=== PATIENT | female | born 1995 | race Caucasian/White ===

== ENCOUNTER 2018-10-08 12:40 | Inpatient (IN) ==
[2018-10-08 15:03] LABS: Candida DNA DETECTED (Not Detect); Gardnerella DNA Not Detected (Not Detect); Trichomonas DNA Not Detected (Not Detect)
[2018-10-08] MEDS ORDERED: Naloxone 0.4 MG/ML INJ IVP PRN (15:05)
[2018-10-08] MEDS ORDERED: *HR* Nalbuphine 10 MG/ML AMPUL IVP PRN (15:05)
[2018-10-08] MEDS ORDERED: Ondansetron 4 MG/2 ML VIAL IVP PRN (15:05)
[2018-10-08] MEDS ORDERED: Famotidine 20 MG/2 ML VIAL IVP PRN (15:05)
[2018-10-08] MEDS ORDERED: Metoclopramide 10 MG/2 ML VIAL IVP PRN (15:05)
[2018-10-08] MEDS ORDERED: Ringers Solution, Lactated 1,000 ML IVC SCH (15:15)
--- NOTE | 2018-10-08 15:41 | OB/GYN History & Physical ---
Date of Encounter: 10/08/18 Time of Encounter: 15:09 Assessment and Plan (1) 39 weeks gestation of Current visit: Yes Status: Acute Admit for spontaneous ROM at 0700 this morning (2) Spontaneous rupture of membranes Current visit: Yes Status: Acute SROM at 0700 this morning, clear fluid. Augment with PO Cytotec or Pitocin (3) NST (non-stress test) reactive Current visit: Yes Status: Acute FHR 130 bpm, moderate variability, +15x15 accels, no decels (4) Blood type O+ Current visit: Yes Status: Acute Collect cord blood at delivery History of Present Illness Chief complaint: SROM at 39w4d HPI: Ms. Valles is a 23 year old female at 39w4d who presents today with SROM at 0700 this morning. She had a gush and has continued to leak since that time. She does report positive movement, denies bleeding and painful contractions. Blood type O+ GBS negative T. Pall negative HbSAG negative Rubella Immune Varicella Negative HIV negative Past Med Surg Social Fam HX - Past Medical History Source: patient Medical history: other Additional medical history: TBI Psychiatric history: anxiety - Past Surgical History Surgical History: other Additional surgical history: craniotomy 02/2013, wisdom teeth extraction - Social History Smoking Status: Never smoker Smokeless Tobacco Status: No Alcohol use: none Drug use: none Occupational status: employed Current living situation: Home - Independent, With Family Activity Level: Independent ambulation Recent Out of Country Travel Within the Last 8 Weeks: No Exposure or Possible Exposure to Illness During Travel: No - Family History Mother Living Status: Still Living Hx Family Cardiac Disorders: Yes (HTN) Hx Family Respiratory Disorders: No Hx Family Cancer: No Hx Family GI Disorders: No Hx Family Genitourinary Disorders: No Hx Family Endocrine Disorder: No Hx Family Musculoskeletal Disorders: No Hx Family Neuromuscular Disorders: No Hx Family Neurologic Disorders: No Hx Family HEENT Disorders: No Hx Family Autoimmune Disorders: No Hx Family Reproductive Disorders: Yes (endometriosis) Hx Family Psychosocial Disorders: No Hx Family Medical Disorders: No Obstetrical History - Pregnancies : 1 Para: 0 Term: 0 : 0 Ab's: 0 Livin Medications and Allergies [place]-3/Dha/Epa/Fish Oil [Fish Oil 1,000 mg Softgel] 1 each PO DAILY 10/08/18 [History] [id number]/FA/Omega3/Dha/Fish Oil [ Gummies] 1 each PO DAILY 10/08/18 [History] Allergy/AdvReac Type Severity Reaction Status Date / Time fluticasone [From Flonase] AdvReac Nose Bleed Verified 10/08/18 13:01 Review of System OB All systems PM: reviewed and no additional remarkable complaints except as stated Exam - Constitutional Constitutional: well developed, well nourished, no acute distress, average body habitus - HEENT HEENT: Normocephaly - Neck Neck exam: full ROM - Lungs Respiratory exam: CTAB - Cardiovascular Cardiovascular exam: RRR, +S1, +S2 - Breasts Breast: bilateral: normal - Abdomen Abdomen: Present: bowel sounds normal, gravid, non tender - Extremities Extremities exam: full ROM, normal capillary refill, normal inspection Deep Tendon Reflex Grade: 2+ Normal - Vulva Vulva: bilateral: normal - Vagina Vagina: Present: normal moisture - Cervix Dilation: 1 Effacement: 50 Station: -2 - Uterus Uterus exam: Present: normal size - Anus/Rectum Anus/Rectum: Present: normal perianal skin Results Abnormal lab results Ligia species DNA DETECTED (Not Detect) A 10/08/18 14:01 All other labs normal. - VTE Reasons for not Prescribing Prophylaxis: Treatment not Indicated - Low risk for VTE
[2018-10-08] MEDS ORDERED: miSOPROStol 25 MCG TABLET PO PRN (15:56)
[2018-10-08 16:14] LABS: Basophils % 0.4 %; Eosinophils # 0.1 K/mcL (0.0-0.6); Eosinophils % 0.5 %; Hematocrit 37.7 % (35.3-44.9); Hemoglobin 12.4 g/dL (11.5-15.4); Immature Granulocytes % 0.6 % (0-4); Lymphocytes % 18.9 %; Mean Corpuscular HGB Conc 32.9 g/dL (31.6-35.5); Mean Corpuscular Hemoglobin 30.4 pg (28.0-33.3); Mean Corpuscular Volume 92.4 fL (83.0-100.0); Mean Platelet Volume 11.5 fL (9.4-12.4); Monocytes # 0.7 K/mcL (0.0-1.3); Monocytes % 6.5 %; Neutrophils # 7.9 K/mcL (1.6-8.9); Platelet Count 224 K/mcL (140-400); Red Blood Count 4.08 M/mcL (3.82-4.97); Red Cell Distribution Width 13.2 % (11.5-14.5); Segmented Neutrophils % 73.1 %
[2018-10-08 16:32] LABS: Amphetamine Screen,Urine Negative ng/mL (Cutoff=1000); Barbiturate Screen,Urine Negative ng/mL (Cutoff=200); Benzodiazepines Screen,Urine Negative ng/mL (Cutoff=200); Cannabinoid Screen,Urine Negative ng/mL (Cutoff = 50); Cocaine Screen,Urine Negative ng/mL (Cutoff= 300); Opiate Screen,Urine Negative ng/mL (Cutoff=300); Phencyclidine Screen,Urine Negative ng/mL (Cutoff=25)
--- NOTE | 2018-10-08 21:45 | OB Labor Progress Note ---
Date of Encounter: 10/08/18 Time of Encounter: 21:41 Labor Progress Note - Subjective Subjective: Patient coping well with contractions. Currently denies pain with ctx. - Vital Signs Vital Signs: WNL - Cervix Cervix: 1/80/-1 - Heart Tones Heart Tones: FHR 135 bpm, moderate variability, +15x15 accels, one variable decels. - [place]: q 2-3 min - Interventions Interventions: SVE unchanged from previous exam. Discussed AROM of forebag and patient is agreeable to this. AROM for moderate amount of clear fluid. - Plan Physician notified: Yes Physician notified details: Dr. Jiménez on unit and aware of AROM of forebag. Aware of SROM > 12 hours and afebrile. Plan: May repeat Cytotec PO if patient desires Consider Pitocin augmentation Anticipate
[2018-10-09] MEDS ORDERED: miSOPROStol 25 MCG TABLET PO SCH
[2018-10-09] MEDS ORDERED: Oxytocin 20 units/ LR 1000 mL 20 UNIT/1,000 ML BAG IVC SCH ×2 (00:15→12:45)
--- NOTE | 2018-10-09 07:09 | OB Labor Progress Note ---
Date of Encounter: 10/09/18 Time of Encounter: 07:05 Labor Progress Note - Subjective Subjective: Patient is coping well with contractions. She has received one dose of Nubain at this time. - Vital Signs Vital Signs: WNL, afebrile - Cervix Cervix: 5-6/90/-1 - Heart Tones Heart Tones: FHR 130 bpm, moderate variability, + 15x15 accels, early decelerations - [place]: 2-5 minutes - Interventions Interventions: Patient received one dose of Nubain She has been offered Pitocin for augmentation and has declined throughout the night. She does not plan on an epidural at this point. She desires a felipa - Plan Physician notified: Yes Physician notified details: Dr. Jiménez on unit and aware of patient SVE Plan: Continue expectant management Offer Pitocin augmentation Anticipate
--- NOTE | 2018-10-09 12:40 | OB/GYN Procedure Note ---
Delivery - Delivery Date: 10/09/18 Provider: Abram Garcia Intrapartum events: none Delivery induction: none Delivery monitor: external FHT, external uterine Anesthesia: local Quantitated Blood Loss: 200 - (s) A Delivery Date: 10/09/18 Infant Delivery Time: 12:03 Presentation: vertex Position: RUSS Route of delivery: Gender: Female Viability: Viable at 1 minute: 8 at 5 mins: 9 Shoulder Dystocia: not encountered Specimens collected: cord blood Placenta: spontaneous Cord: 3 umbilical vessels - Repair Episiotomy: none Laceration Description: Perineal - 1st Degree - Complications Delivery complications: none - Disposition Mom disposition: stable in LDR disposition: stable in LDR - Comments Comments: Pt s/p of liveborn female with APGARS 8 at 1 min and 9 at 5 min. Placenta was delivered spontaneously and left attached to cord and baby per pt's request. 1st degree laceration repaired with 3-0 vicryl under local anesthesia. EBL 200 cc mother and recovered in LDR.
[2018-10-09] MEDS ORDERED: Oxytocin 20 units/ LR 1000 mL 20 UNIT/1,000 ML BAG IVC ONE (12:44)
[2018-10-09] MEDS ORDERED: Measles/Mumps/Rubella Vacc 0.5 ML VIAL SQ PRN (12:44)
[2018-10-09] MEDS ORDERED: Acetaminophen 325 MG TABLET PO PRN (12:44)
[2018-10-09] MEDS ORDERED: Rho Immune Globulin 1,500 UNIT SYRINGE IM PRN (12:44)
[2018-10-09] MEDS: Ibuprofen 600 MG TABLET PO PRN (16:10)
[2018-10-10 01:57] LABS: Basophils % 0.2 %; Eosinophils % 0.3 %; Hematocrit 30.8 % (35.3-44.9); Immature Granulocytes % 0.8 % (0-4); Lymphocytes # 2.3 K/mcL (0.6-4.6); Lymphocytes % 14.5 %; Mean Corpuscular HGB Conc 32.5 g/dL (31.6-35.5); Mean Corpuscular Hemoglobin 29.9 pg (28.0-33.3); Mean Corpuscular Volume 92.2 fL (83.0-100.0); Mean Platelet Volume 11.8 fL (9.4-12.4); Monocytes # 1.5 K/mcL (0.0-1.3); Monocytes % 9.4 %; Neutrophils # 11.7 K/mcL (1.6-8.9); Platelet Count 200 K/mcL (140-400); Red Blood Count 3.34 M/mcL (3.82-4.97); Red Cell Distribution Width 13.4 % (11.5-14.5); Segmented Neutrophils % 74.8 %
[2018-10-10] MEDS: Ibuprofen 600 MG TABLET PO PRN (05:35)
[2018-10-10 08:53] VITALS: BP 125/77
[2018-10-10] MEDS ORDERED: Prenatal Vit/FA 1 EACH TABLET PO SCH (09:00)
--- NOTE | 2018-10-10 09:36 | Discharge Summary ---
Date of Encounter: 10/10/18 Time of Encounter: 09:00 - Discharge Diagnosis (1) Status post vaginal delivery Priority: Primary Status: Acute Comments: Patient meeting PPD1 milestones. Reports pain managed by Ibuprofen. Discussed control options and safe spacing. Patient does not desire control today, plans to decide at PP visit. Anticipate discharge home today. (2) Breast feeding status of mother Priority: Secondary Status: Acute Comments: Patient direct when I was in the room. Latch verified with audible swallows noted. (3) Maternal varicella, non-immune Priority: Secondary Status: Acute (4) Vaginal yeast infection Priority: Secondary Status: Acute Comments: Diflucan given prior to discharge. - Discharge Medications Prescriptions: New RX: Ibuprofen [Motrin] 600 mg PO Q6HR PRN #60 tablet PRN Reason: Cramping RX: Docusate [Colace] 100 mg PO BID #60 capsule RX: Breast Pump [BREAST PUMP] 1 each .ROUTE AD #1 each Continue RX: [id number]/FA/Omega3/Dha/Fish Oil [ Gummies] 1 each PO DAILY RX: [place]-3/Dha/Epa/Fish Oil [Fish Oil 1,000 mg Softgel] 1 each PO DAILY Home Medications: RX: [place]-3/Dha/Epa/Fish Oil [Fish Oil 1,000 mg Softgel] 1 each PO DAILY 10/08/18 [History] RX: Skx041/FA/Omega3/Dha/Fish Oil [ Gummies] 1 each PO DAILY 10/08/18 [History] RX: Breast Pump [BREAST PUMP] 1 each .ROUTE AD #1 each 10/10/18 [Rx] RX: Docusate [Colace] 100 mg PO BID #60 capsule 10/10/18 [Rx] RX: Ibuprofen [Motrin] 600 mg PO Q6HR PRN #60 tablet 10/10/18 [Rx] Allergies/Adverse Reactions: Allergy/AdvReac Type Severity Reaction Status Date / Time fluticasone [From Flonase] AdvReac Nose Bleed Verified 10/08/18 13:01 Data Procedures and tests throughout hospitalization: Laboratory Tests 10/08/18 10/08/18 10/08/18 13:02 14:01 15:50 WBC 10.8 RBC 4.08 Hgb 12.4 Hct 37.7 MCV 92.4 MCH 30.4 MCHC 32.9 RDW 13.2 Plt Count 224 MPV 11.5 Immature Gran % 0.6 Seg Neutrophils % 73.1 Lymphocytes % 18.9 Monocytes % 6.5 Eosinophils % 0.5 Basophils % 0.4 Neutrophils # 7.9 Lymphocytes # 2.0 Monocytes # 0.7 Eosinophils # 0.1 Basophils # 0.0 Urine Opiates Screen Negative Ur Barbiturates Screen Negative Ur Phencyclidine Scrn Negative Ur Amphetamines Screen Negative U Benzodiazepines Scrn Negative Urine Cocaine Screen Negative U Marijuana (THC) Screen Negative Ur Drug Screen Interp See Below Ligia species DNA DETECTED A Gardnerella DNA Probe Not Detected Trichomonas DNA Probe Not Detected 10/10/18 01:30 WBC 15.7 H RBC 3.34 L Hgb 10.0 L D Hct 30.8 L MCV 92.2 MCH 29.9 MCHC 32.5 RDW 13.4 Plt Count 200 MPV 11.8 Immature Gran % 0.8 Seg Neutrophils % 74.8 Lymphocytes % 14.5 Monocytes % 9.4 Eosinophils % 0.3 Basophils % 0.2 Neutrophils # 11.7 H Lymphocytes # 2.3 Monocytes # 1.5 H Eosinophils # 0.0 Basophils # 0.0 Urine Opiates Screen Ur Barbiturates Screen Ur Phencyclidine Scrn Ur Amphetamines Screen U Benzodiazepines Scrn Urine Cocaine Screen U Marijuana (THC) Screen Ur Drug Screen Interp Ligia species DNA Gardnerella DNA Probe Trichomonas DNA Probe Labs on day of discharge: Labs from last 24 hours 10/10/18 01:30 WBC 15.7 H RBC 3.34 L Hgb 10.0 L D Hct 30.8 L MCV 92.2 MCH 29.9 MCHC 32.5 RDW 13.4 Plt Count 200 MPV 11.8 Immature Gran % 0.8 Seg Neutrophils % 74.8 Lymphocytes % 14.5 Monocytes % 9.4 Eosinophils % 0.3 Basophils % 0.2 Neutrophils # 11.7 H Lymphocytes # 2.3 Monocytes # 1.5 H Eosinophils # 0.0 Basophils # 0.0 Date of admission: 10/08/18 12:40 Primary care physician: PCP NONE Consults: 10/09/18 12:44 Consult to Window/Distribution Clerk [CONS] Routine Comment: Vaginal delivery, consult needed Discharging clinician: Chiquita Kay Anticipated date of discharge: 10/10/18 - Patient Status Disposition: Home, Self-Care Condition: Good Functional capacity at discharge: independent ambulation Overall status at discharge: patient is progressing back to baseline - Discharge Instructions Follow Up With: NONE,PCP [Primary Care Provider] - Abram Garcia MD [Partnered Physician] - - Diet and Activity Activity: increase activity as tolerated Diet: advance to your usual diet Hospital Course Reason for admission: rupture of membranes, IUP at term Delivery: (Amy ) Episiotomy: none Laceration: 1st degree Other procedures: none complications: none Discharge diagnosis: IUP at term delivered baby: female Hospital course: - Delivery Date: 10/09/18 Provider: Abram Garcia Intrapartum events: none Delivery induction: none Delivery monitor: external FHT, external uterine Anesthesia: local Quantitated Blood Loss: 200 - Infant (s) A Delivery Date: 10/09/18 Delivery Time: 12:03 Presentation: vertex Position: RUSS Route of delivery: Gender: Female Viability: Viable at 1 minute: 8 at 5 mins: 9 Shoulder Dystocia: not encountered Specimens collected: cord blood Placenta: spontaneous Cord: 3 umbilical vessels - Repair Episiotomy: none Laceration Description: Perineal - 1st Degree - Complications Delivery complications: none - Disposition Mom disposition: stable in LDR [place] disposition: stable in LDR - Comments Comments: Pt s/p of liveborn female with APGARS 8 at 1 min and 9 at 5 min. Placenta was delivered spontaneously and left attached to cord and baby per pt's request. 1st degree laceration repaired with 3-0 vicryl under local anesthesia. EBL 200 cc mother and infant recovered in LDR. Time Attestation: Total time spent providing and/or coordinating discharge services: Exam - Constitutional Vitals: Temp Pulse Resp BP Pulse Ox 98.7 F 97 16 125/77 99 10/10/18 08:52 10/10/18 08:52 10/10/18 08:52 10/10/18 08:52 10/10/18 08:52 General appearance IM: cooperative, A&O X 3, no acute distress - Respiratory Respiratory exam: Present: CTAB - Cardiovascular Cardiovascular exam IM: Present: RRR - GI/Abdominal GI/Abdominal exam IM: normal bowel sounds - Neurological Exam Neurological exam: alert, oriented X3, reflexes normal - Psychiatric Additional comments: denies mood concerns.
[2018-10-10] MEDS ORDERED: Fluconazole 100 MG TABLET PO ONE (09:49)
== END 2018-10-10 11:16 | disposition home or self-care (01) | DRG 806 ==
LOC: 1NENULAB → OBSVTOIN 12:40 → 1NENUOBS 10-09 12:50
PROVIDERS: ADMIT Registered Nurse; ATTEND Registered Nurse